=== PATIENT | female | born 1950 | race Caucasian/White ===

== ENCOUNTER 2017-06-28 13:03 | Emergency (ER) | payer MEDICARE, MEDICAID ==
[~2017-06-28] VITALS: Ht 157.5 cm; Wt 53.0 kg
[2017-06-28 13:41] LABS: BASOPHILS # (AUTO) 0.1 X10'3 (0-0.2); BASOPHILS % (AUTO) 0.6 % (0-1); EOSINOPHILS # (AUTO) 0.4 X10'3 (0-0.9); EOSINOPHILS % (AUTO) 3.8 % (0-6); HEMATOCRIT 41.1 % (35.0-45.0); LYMPHOCYTES # (AUTO) 3.8 X10'3 (1.1-4.8); LYMPHOCYTES % (AUTO) 32.5 % (21-51); MEAN CORPUSCULAR VOLUME 94.2 FL (78-98); MEAN PLATELET VOLUME 7.7 FL (7.4-10.4); MONOCYTES # (AUTO) 0.8 X10'3 (0-0.9); NEUTROPHILS # (AUTO) 6.5 X10'3 (1.8-7.7); NEUTROPHILS % (AUTO) 56.1 % (42-75); PLATELET COUNT 279 X10'3 (140-440); RED BLOOD COUNT 4.37 X10'6 (4.20-5.60); RED CELL DISTRIBUTION WIDTH 13.5 % (11.5-14.5); WHITE BLOOD COUNT 11.6 X10'3 (4.5-11.0)
[2017-06-28 13:51] LABS: INR 0.9 INR; PARTIAL THROMBOPLASTIN TIME 24 SECONDS (22-32); PROTHROMBIN TIME 9.5 SECONDS (9.0-12.0)
[2017-06-28 13:58] LABS: CLARITY,URINE SLIGHTLY CLOUDY (Clear); COLOR,URINE YELLOW (Yellow); GLUCOSE, URINE NEGATIVE (Neg); KETONES,URINE NEGATIVE (Neg); LEUKOCYTE ESTERASE ,URINE MODERATE (Neg); NITRITES, URINE NEGATIVE (Neg); OCCULT BLOOD,URINE SMALL (Neg); PROTEIN,URINE NEGATIVE (Neg); UROBILINOGEN,URINE 0.2 E.U/dL (0.2-1.0)
[2017-06-28 14:05] LABS: ALANINE AMINOTRANSFERASE 16 U/L (12-78); ALBUMIN 3.9 G/DL (3.4-5.0); ALBUMIN/GLOBULIN RATIO 1.1 (1.1-1.5); ALKALINE PHOSPHATASE 83 IU/L (46-116); ANION GAP 8 (8-16); ASPARTATE AMINO TRANSFERASE 18 U/L (10-37); BILIRUBIN,TOTAL 0.3 MG/DL (0.1-1.0); BLOOD UREA NITROGEN 17 MG/DL (7-18); BUN/CREATININE RATIO 21.3 (6.6-38.0); CHLORIDE 107 MMOL/L (99-107); ETHANOL < 0.010 GM/DL (0.0-0.010); GLUCOSE 92 MG/DL (70-104); POTASSIUM 4.6 MMOL/L (3.5-5.1); SODIUM 143 MMOL/L (135-145); TOTAL CARBON DIOXIDE 27.9 MMOL/L (24-32); TOTAL PROTEIN 7.4 G/DL (6.4-8.2); eGFR 72 ML/MIN
[2017-06-28 14:06] LABS: UA COLLECTION TYPE CLN CATCH MIDSTREAM
[2017-06-28 14:09] LABS: SQUAMOUS EPITHELIAL CELL,UR MODERATE /LPF (FEW)
[2017-06-28 14:10] LABS: RBC,URINE 0-2 /HPF (0-2)
[2017-06-28 14:11] LABS: BACTERIA,URINE 1+ /HPF (Neg); MUCUS STRANDS FEW /LPF (Neg); TRANSITIONAL EPI CELLS,URINE FEW /HPF
[2017-06-28 14:12] LABS: WBC CLUMPS,URINE FEW /HPF (NEGATIVE)
[2017-06-28 14:14] LABS: URINE AMPHETAMINE SCREEN NEGATIVE (Neg); URINE BARBITUATE SCREEN NEGATIVE (Neg); URINE BENZODIAZEPINES SCREEN NEGATIVE (Neg); URINE CANNABINOID SCREEN NEGATIVE (Neg); URINE COCAINE SCREEN NEGATIVE (Neg); URINE METHADONE SCREEN NEGATIVE (Neg); URINE OPIATE SCREEN NEGATIVE (Neg); URINE PHENCYCLIDINE SCREEN NEGATIVE (Neg)
[2017-06-28] MEDS ORDERED: CLON-528 PO (15:18)
[2017-06-28] MEDS ORDERED: FLUO20CA39 PO (15:18)
[2017-06-28] MEDS ORDERED: TRAZ-146 PO (15:18)
[2017-06-28] MEDS ORDERED: HYDR12.5 PO (15:18)
[2017-06-28] MEDS ORDERED: ENAL20TA11 PO (15:18)
[2017-06-28] MEDS ORDERED: lisinopril 10 MG tablet PO ONE (15:25)
[2017-06-28] MEDS ORDERED: acetaminophen 325mg tablet PO ONE (15:25)
[2017-06-28] MEDS ORDERED: HYDROchlorothiazide 25mg tablet PO ONE (15:25)
[2017-06-28 16:43] VITALS: BP 163/84
[2017-06-28] MEDS ORDERED: traZODone 50mg tablet PO SCH (21:00)
[2017-06-28] MEDS ORDERED: clonazePAM 0.5mg tablet PO SCH (21:00)
[2017-06-28] MEDS ORDERED: lisinopril 20mg tablet PO SCH (21:00)
[2017-06-29] MEDS ORDERED: HYDROchlorothiazide 12.5mg capsule PO SCH (08:00)
[2017-06-29] MEDS ORDERED: FLUoxetine 20mg capsule PO SCH (08:00)
== END 2017-06-28 16:35 ==
LOC: ER 13:04
DX: I10 Essential (primary) hypertension (principal); F32.9 Major depressive disorder, single episode, unspecified; F17.200 Nicotine dependence, unspecified, uncomplicated; Z90.710 Acquired absence of both cervix and uterus; Z88.5 Allergy status to narcotic agent
CPT/HCPCS: 36415; 80053; 80305; 80320; 81001; 83735; 84443; 84484; 85025; 85610; 85730; 87088; 93005; 99285

== ENCOUNTER 2017-06-28 15:55 | Inpatient (IN) | payer MEDICARE, MEDICAID ==
[~2017-06-28] VITALS: Ht 157.5 cm; Wt 53.2 kg
[~2017-06-28 15:55] MED LIST: CLON-528 PO; ENAL20TA11 PO; FLUO20CA39 PO; HYDR12.5 PO; TRAZ-146 PO
[2017-06-28] MEDS ORDERED: pneumococcal 23-VAL P-sac vacc 25 mcg/0.5ml vial IMVAC ONE (17:15)
[2017-06-28] MEDS ORDERED: FLU VACC QS2017-18 36MOS UP/PF 60 MCG/0.5 ML SYRINGE IMVAC ONE (17:15)
[2017-06-28 19:03] VITALS: BP 156/60
[2017-06-28] MEDS: clonazePAM 0.5mg tablet PO SCH (20:21)
[2017-06-28] MEDS ORDERED: traZODone 50mg tablet PO SCH (21:00)
[2017-06-29] MEDS ORDERED: FLUoxetine 20mg capsule PO SCH (08:00)
[2017-06-29] MEDS: lisinopril 20mg tablet PO SCH (08:00)
[2017-06-29] MEDS: HYDROchlorothiazide 12.5mg capsule PO SCH (08:00)
[2017-06-29 09:00] VITALS: BP 96/41
[2017-06-29] MEDS: ibuprofen tablet 400 MG TABLET PO PRN (14:14)
[2017-06-29 14:19] VITALS: BP 110/60
[2017-06-29 19:29] VITALS: BP 126/52
[2017-06-29] MEDS: clonazePAM 0.5mg tablet PO SCH (20:55)
[2017-06-29] MEDS: sennosides/docusate sodium tablet PO SCH (20:55)
[2017-06-29] MEDS: traZODone 150mg tablet PO SCH (20:55)
[2017-06-29] MEDS: acetaminophen 325mg tablet PO PRN (21:10)
[2017-06-30 08:00] VITALS: BP 113/61
[2017-06-30] MEDS ORDERED: FLUoxetine 20mg capsule PO SCH (08:00)
[2017-06-30] MEDS ORDERED: venlafaxine XR 37.5mg cap (Q24H) PO SCH (08:00)
[2017-06-30] MEDS: lisinopril 20mg tablet PO SCH (08:10)
[2017-06-30] MEDS: HYDROchlorothiazide 12.5mg capsule PO SCH (08:11)
[2017-06-30 19:24] VITALS: BP 120/48
[2017-06-30] MEDS: sennosides/docusate sodium tablet PO SCH (20:44)
[2017-06-30] MEDS: clonazePAM 0.5mg tablet PO SCH (20:44)
[2017-06-30] MEDS: metroNIDAZOLE 500mg tablet PO SCH (20:44)
[2017-06-30] MEDS: traZODone 150mg tablet PO SCH (20:45)
[2017-07-01 07:12] VITALS: BP 141/40
[2017-07-01] MEDS ORDERED: nicotine 14mg patch - 24hr TD ONE (08:00)
[2017-07-01] MEDS ORDERED: venlafaxine XR 37.5mg cap (Q24H) PO SCH (08:00)
[2017-07-01] MEDS: ibuprofen tablet 400 MG TABLET PO PRN (08:18)
[2017-07-01] MEDS: HYDROchlorothiazide 12.5mg capsule PO SCH (08:21)
[2017-07-01] MEDS: FLUoxetine 20mg capsule PO SCH (08:21)
[2017-07-01] MEDS: lisinopril 20mg tablet PO SCH (08:21)
[2017-07-01] MEDS: metroNIDAZOLE 500mg tablet PO SCH ×2 (08:21→19:25)
[2017-07-01] MEDS ORDERED: venlafaxine XR 75mg capsule (Q24H) PO ONE (08:35)
[2017-07-01] MEDS: acetaminophen 325mg tablet PO PRN (08:40)
[2017-07-01] MEDS: traMADol 50MG tablet PO PRN ×2 (13:30→19:25)
[2017-07-01] MEDS: lactobacillus rhamnosus 10,000 MMU CELLS/CAPSULE PO SCH (17:54)
[2017-07-01 19:57] VITALS: BP 160/65
[2017-07-01] MEDS: traZODone 150mg tablet PO SCH (20:33)
[2017-07-01] MEDS: clonazePAM 0.5mg tablet PO SCH (20:33)
[2017-07-01] MEDS: sennosides/docusate sodium tablet PO SCH (20:33)
[2017-07-02 07:07] VITALS: BP 99/49
[2017-07-02] MEDS: lisinopril 20mg tablet PO SCH (08:00)
[2017-07-02] MEDS: HYDROchlorothiazide 12.5mg capsule PO SCH ×2 (08:00→08:01)
[2017-07-02] MEDS: metroNIDAZOLE 500mg tablet PO SCH ×2 (08:01→20:50)
[2017-07-02] MEDS: venlafaxine XR 75mg capsule (Q24H) PO SCH (08:01)
[2017-07-02] MEDS: lactobacillus rhamnosus 10,000 MMU CELLS/CAPSULE PO SCH ×2 (08:01→17:44)
[2017-07-02] MEDS: FLUoxetine 20mg capsule PO SCH (08:01)
[2017-07-02] MEDS: traMADol 50MG tablet PO PRN ×3 (08:13→20:50)
[2017-07-02] MEDS ORDERED: mag hydrox/Alum hydrox/simeth 30ml oral suspension PO PRN (12:35)
[2017-07-02] MEDS ORDERED: magnesium hydroxide 30ml (MOM) UD suspension PO PRN (12:35)
[2017-07-02] MEDS: ibuprofen tablet 400 MG TABLET PO PRN (12:53)
[2017-07-02] MEDS ORDERED: simethicone 125mg capsule PO SCH (13:00)
[2017-07-02] MEDS: simethicone 125mg capsule PO PRN (13:28)
[2017-07-02] MEDS: acetaminophen 325mg tablet PO PRN (14:05)
[2017-07-02] MEDS: nicotine 14mg patch - 24hr TD SCH (17:44)
[2017-07-02 19:00] VITALS: BP 153/66
[2017-07-02] MEDS: clonazePAM 0.5mg tablet PO SCH (20:49)
[2017-07-02] MEDS: sennosides/docusate sodium tablet PO SCH (20:50)
[2017-07-02] MEDS ORDERED: traMADol 50MG tablet PO ONE (21:05)
[2017-07-02] MEDS: traZODone 50mg tablet PO SCH (21:11)
[2017-07-03 07:13] VITALS: BP 106/46
[2017-07-03 07:30] VITALS: BP 143/58
[2017-07-03] MEDS: venlafaxine XR 75mg capsule (Q24H) PO SCH (07:30)
[2017-07-03] MEDS: metroNIDAZOLE 500mg tablet PO SCH ×2 (07:30→20:26)
[2017-07-03] MEDS: traMADol 50MG tablet PO PRN (07:30)
[2017-07-03] MEDS: HYDROchlorothiazide 12.5mg capsule PO SCH (07:30)
[2017-07-03] MEDS: lactobacillus rhamnosus 10,000 MMU CELLS/CAPSULE PO SCH ×2 (07:30→17:48)
[2017-07-03] MEDS: lisinopril 20mg tablet PO SCH (07:30)
[2017-07-03] MEDS: nicotine 14mg patch - 24hr TD SCH (08:00)
[2017-07-03] MEDS: ibuprofen tablet 400 MG TABLET PO PRN ×2 (12:12→20:30)
[2017-07-03] MEDS: acetaminophen 325mg tablet PO PRN (12:12)
[2017-07-03] MEDS ORDERED: magnesium citrate 296ml oral solution PO ONE (14:15)
[2017-07-03 19:00] VITALS: BP 142/55
[2017-07-03] MEDS: traZODone 50mg tablet PO SCH (20:26)
[2017-07-03] MEDS: clonazePAM 0.5mg tablet PO SCH (20:26)
[2017-07-03] MEDS: sennosides/docusate sodium tablet PO SCH (20:27)
[2017-07-04] MEDS ORDERED: LORazepam 2 mg/ml vial IV ONE (01:55)
[2017-07-04] MEDS ORDERED: LORazepam 1 MG tablet PO PRN (01:55)
[2017-07-04] MEDS ORDERED: OLANZapine **IM** 10 mg inj. IM ONE (01:55)
[2017-07-04 07:00] VITALS: BP 127/77
[2017-07-04] MEDS: nicotine 14mg patch - 24hr TD SCH (08:00)
[2017-07-04] MEDS: lactobacillus rhamnosus 10,000 MMU CELLS/CAPSULE PO SCH ×2 (08:40→17:30)
[2017-07-04] MEDS: venlafaxine XR 75mg capsule (Q24H) PO SCH (08:41)
[2017-07-04] MEDS: lisinopril 20mg tablet PO SCH (08:41)
[2017-07-04] MEDS: metroNIDAZOLE 500mg tablet PO SCH ×2 (08:41→20:20)
[2017-07-04] MEDS: HYDROchlorothiazide 12.5mg capsule PO SCH (08:41)
[2017-07-04] MEDS: traMADol 50MG tablet PO PRN (10:31)
[2017-07-04] MEDS: simethicone 125mg capsule PO PRN (14:49)
[2017-07-04 19:09] VITALS: BP 133/66
[2017-07-04] MEDS: clonazePAM 0.5mg tablet PO SCH (20:19)
[2017-07-04] MEDS: traZODone 50mg tablet PO SCH (20:19)
[2017-07-04] MEDS: ibuprofen tablet 400 MG TABLET PO PRN (20:19)
[2017-07-04] MEDS: sennosides/docusate sodium tablet PO SCH (20:20)
[2017-07-05] MEDS: lactobacillus rhamnosus 10,000 MMU CELLS/CAPSULE PO SCH (07:19)
[2017-07-05] MEDS: venlafaxine XR 75mg capsule (Q24H) PO SCH (07:57)
[2017-07-05] MEDS: HYDROchlorothiazide 12.5mg capsule PO SCH (07:57)
[2017-07-05] MEDS: metroNIDAZOLE 500mg tablet PO SCH (07:57)
[2017-07-05] MEDS: lisinopril 20mg tablet PO SCH (07:57)
[2017-07-05] MEDS: nicotine 14mg patch - 24hr TD SCH (07:58)
[2017-07-05 08:00] VITALS: BP 136/58
[2017-07-05] MEDS ORDERED: VENL150T3 PO (08:20)
[2017-07-05] MEDS ORDERED: TRAZ-146 PO (08:20)
[2017-07-05] MEDS ORDERED: NICO-631 TD (08:20)
== END 2017-07-05 17:00 | disposition home or self-care (01) | DRG 885 ==
LOC: ADULT MH 15:55
PROVIDERS: ADMIT Psychiatry & Neurology Psychiatry; ATTEND Psychiatry & Neurology Psychiatry
DX: F33.2 Major depressive disorder, recurrent severe without psychotic features (principal); R45.851 Suicidal ideations; N39.0 Urinary tract infection, site not specified; F17.210 Nicotine dependence, cigarettes, uncomplicated; I10 Essential (primary) hypertension; N89.8 Other specified noninflammatory disorders of vagina; F41.9 Anxiety disorder, unspecified; G47.09 Other insomnia; K58.1 Irritable bowel syndrome with constipation; Z90.710 Acquired absence of both cervix and uterus; Z80.8 Family history of malignant neoplasm of other organs or systems
CPT/HCPCS: 87070; 90732; 99285; J3490; Q2037

== ENCOUNTER 2018-10-08 13:29 | Emergency (ER) | payer MEDICARE, MEDICAID ==
[~2018-10-08] VITALS: Ht 157.5 cm; Wt 51.8 kg
[~2018-10-08 13:29] MED LIST changes: +ENAL20TA PO; -ENAL20TA11 PO; -FLUO20CA39 PO; +MAGN296S50 PO; +NICO-631 TD; -TRAZ-146 PO; +TRAZ-219 PO; +VENL150T3 PO
[2018-10-08] MEDS ORDERED: normal saline 1000ML IV soln IVB ONE (15:30)
[2018-10-08] MEDS ORDERED: metoclopramide 5 mg/ml inj IV ONE (15:30)
[2018-10-08] MEDS ORDERED: diphenhydrAMINE 50 mg/ml inj IV ONE (15:30)
[2018-10-08 16:34] LABS: ALANINE AMINOTRANSFERASE 23 U/L (12-78); ALBUMIN 3.6 G/DL (3.4-5.0); ALKALINE PHOSPHATASE 97 IU/L (46-116); ANION GAP 6 (8-16); ASPARTATE AMINO TRANSFERASE 21 U/L (10-37); BILIRUBIN,TOTAL 0.2 MG/DL (0.1-1.0); BLOOD UREA NITROGEN 12 MG/DL (7-18); BUN/CREATININE RATIO 16.2 (6.6-38.0); CHLORIDE 103 MMOL/L (99-107); CREATININE 0.74 MG/DL (0.40-0.90); GLUCOSE 93 MG/DL (70-104); POTASSIUM 4.1 MMOL/L (3.5-5.1); SODIUM 138 MMOL/L (135-145); TOTAL CARBON DIOXIDE 28.8 MMOL/L (24-32); TOTAL PROTEIN 7.3 G/DL (6.4-8.2); eGFR 79 ML/MIN
[2018-10-08 16:39] LABS: BASOPHILS # (AUTO) 0.1 X10'3 (0-0.2); EOSINOPHILS # (AUTO) 0.4 X10'3 (0-0.9); EOSINOPHILS % (AUTO) 3.8 % (0-6); HEMATOCRIT 41.1 % (35.0-45.0); HEMOGLOBIN 13.7 g/dl (12.0-16.0); LYMPHOCYTES # (AUTO) 3.8 X10'3 (1.1-4.8); LYMPHOCYTES % (AUTO) 37.5 % (21-51); MEAN CORPUSCULAR HEMOGLOBIN 31.5 PG (27.0-31.0); MEAN CORPUSCULAR HGB CONC 33.4 g/dL (33.0-36.5); MEAN CORPUSCULAR VOLUME 94.1 FL (78-98); MEAN PLATELET VOLUME 8.3 FL (7.4-10.4); MONOCYTES # (AUTO) 0.8 X10'3 (0-0.9); MONOCYTES % (AUTO) 7.5 % (2-12); NEUTROPHILS % (AUTO) 50.2 % (42-75); PLATELET COUNT 283 X10'3 (140-440); RED BLOOD COUNT 4.37 X10'6 (4.20-5.60); RED CELL DISTRIBUTION WIDTH 12.2 % (11.5-14.5)
[2018-10-08 17:08] LABS: CLARITY,URINE CLEAR (Clear); COLOR,URINE YELLOW (Yellow); GLUCOSE, URINE NEGATIVE (Neg); KETONES,URINE NEGATIVE (Neg); LEUKOCYTE ESTERASE ,URINE MODERATE (Neg); NITRITES, URINE NEGATIVE (Neg); OCCULT BLOOD,URINE SMALL (Neg); PH,URINE 7.5 (4.8-8.0); PROTEIN,URINE NEGATIVE (Neg); UROBILINOGEN,URINE 0.2 E.U/dL (0.2-1.0)
[2018-10-08 17:09] LABS: UA COLLECTION TYPE CLN CATCH MIDSTREAM
[2018-10-08 17:14] LABS: SQUAMOUS EPITHELIAL CELL,UR MODERATE /LPF (FEW)
[2018-10-08 17:19] LABS: BACTERIA,URINE 1+ /HPF (Neg); RBC,URINE 0-2 /HPF (0-2); WBC,URINE 0-4 /HPF (0-4)
[2018-10-08 17:40] VITALS: BP 130/61
== END 2018-10-08 17:41 | disposition home or self-care (01) ==
LOC: ER 13:29
DX: K56.7 Ileus, unspecified (principal); I10 Essential (primary) hypertension; Z90.49 Acquired absence of other specified parts of digestive tract; Z90.710 Acquired absence of both cervix and uterus; Z88.5 Allergy status to narcotic agent; Z79.899 Other long term (current) drug therapy
CPT/HCPCS: 36415; 74018; 80053; 81001; 83605; 85025; 96374; 96375; 99284; J1200; J2765; J7030